=== PATIENT | female | born 1970 | race Two or more races ===

== ENCOUNTER → 2025-04-10 | Outpatient (CLI) | payer MEDICAID, SELFPAY ==
--- NOTE | 2025-04-10 14:00 | XR_ITS ---
Examination: Screening digital mammography, bilateral Computer aided detection 3-D breast Tomosynthesis, bilateral Date and time of exam: 04/10/2025, 1:48 PM Comparisons: March 2024, May 2024 Indications: Screening Technique: Nonmagnified MLO, CC views of the breasts to been obtained, reconstructed from 3-D Tomosynthesis images. R2 computer aided detection program utilized for evaluation of suspicious masses and/or abnormal calcifications. 3-D Tomosynthesis images obtained. Technologist: Findings: There are scattered areas of fibroglandular density. Asymmetry right lower outer quadrant, 6.2 cm from the nipple on the MLO view. Otherwise, no evidence of abnormal masses or suspicious calcifications. Impression: Right breast asymmetry as above. Spot compression views and possible ultrasound evaluation recommended. BI-RADS category 0: Incomplete assassment; need additional imaging evaluation
== END | disposition home or self-care (01) ==
LOC: CDIM 13:42
PROVIDERS: Referring Provider Nurse Practitioner Family; Visit Provider Nurse Practitioner Family
DX: Z12.31 Encounter for screening mammogram for malignant neoplasm of breast (principal); N64.89 Other specified disorders of breast
CPT/HCPCS: 77063; 77067

== ENCOUNTER → 2025-07-16 | Outpatient (CLI) | payer MEDICAID, SELFPAY ==
--- NOTE | 2025-07-16 11:30 | XR_ITS ---
Examination: Breast ultrasound, unilateral, right complete Date and time of exam: July 16, 2025, 1315 hours INDICATION: Mammogram November 08, 2024 asymmetry right lower outer quadrant 6.2 cm from the nipple Technique: Real-time flores scale ultrasonographic imaging performed right breast including all 4 quadrants as well as nipple retroareolar and axillary region. Findings: No cystic or solid mass IMPRESSION: BI-RADS Category 1: Negative study
--- NOTE | 2025-07-16 13:15 | XR_ITS ---
Examination: Diagnostic digital mammography, unilateral, left Computer aided detection 3-D breast Tomosynthesis, unilateral Date and time of exam: Right July 16, 2025, 2054 hours INDICATIONS: Mammogram April 10, 2025 asymmetry right lower outer quadrant 6.2 cm from the nipple on the MLO view Technique: Nonmagnified MLO, CC views of the right breast have been obtained, reconstructed from 3-D Tomosynthesis images. R2 computer aided detection program utilized for evaluation of suspicious masses and/or abnormal calcifications. 3-D Tomosynthesis images obtained. Findings: Scattered areas of fibroglandular density Breast sonogram today demonstrates no cystic or solid mass Focal asymmetry does remain outer right breast on the spot compression cc view Impression: BI-RADS category 3: Probably benign findings 1 additional 6-month right mammogram follow-up is needed
== END | disposition home or self-care (01) ==
LOC: CDIM 12:06
PROVIDERS: Referring Provider Nurse Practitioner Family; Visit Provider Nurse Practitioner Family
DX: R92.321 Mammographic fibroglandular density, right breast (principal); R92.331 Mammographic heterogeneous density, right breast
CPT/HCPCS: 76641; 77061; 77065; G0279